=== PATIENT | male | born 1935 | race Caucasian/White ===

== ENCOUNTER 2018-06-29 13:18 | Observation (INO) | payer MEDICARE, MEDICAID ==
[~2018-06-29] VITALS: Ht 172.7 cm; Wt 105.2 kg
--- NOTE | ~2018-06-29 | CN ---
PATIENT NAME:CHERRY ROD MEDICAL RECORD: [id number] : 35 LOCATION:D. D.2133 ADMIT DATE: 06/29/18 ACCOUNT: [id number] CONSULTING PHYSICIAN: MARISSA MCKOY MD REFERRING PHYSICIAN: MARIMAR CHAPIN MD DATE OF CONSULTATION: 06/29/2018 DIAGNOSES: 1. Syncope. 2. Wide-complex tachycardia. 3. End-stage renal failure. 4. Hyperlipidemia. 5. History of atrial fibrillation, controlled on Cordarone. 6. Chest discomfort. 7. Sick sinus syndrome, status post pacemaker. HISTORY: This is a gentleman who was in dialysis, had syncope. He began having chest discomfort. He was noted to have episodes of wide-complex tachycardia. He is on Pacerone but only at 100 mg daily. He was given an extra dose of Pacerone. He is in sinus rhythm now. He has ST-T abnormalities in the lateral leads. Last cardiac catheterization was in 2013. There was no significant coronary disease at that time. He does have hyperlipidemia as well as end-stage renal failure, on dialysis. PHYSICAL EXAMINATION: GENERAL APPEARANCE: Well-nourished, well-developed, appears stated age. Level of distress, comfortable. PSYCHIATRIC: Mental status, alert, normal affect. Orientation, oriented to time, place and person. EYES: Lids and conjunctiva, noninjected. No discharge, no pallor. ENT: Lips, teeth, gums, normal dentition. Oropharynx, no cyanosis, no pallor. NECK: Carotid arteries, bilateral normal upstroke, no bruits, no thrills. JUGULAR VEINS: No jugular venous pressure or distention. CERVICAL LYMPH NODES: Nontender, nonenlarged. THYROID: Not enlarged. Nontender. No nodules. LUNGS: Respiratory effort, unlabored. CHEST: Normal curvature. No thoracic deformity. No chest wall tenderness. Percussion, resonant. Auscultation, clear. No wheezes, no rales, no rhonchi. CARDIOVASCULAR: Precordial exam, nondisplaced. No heaves or pericardial thrills. Rate and rhythm, regular. Heart sounds, normal S1, normal S2. No S3, no gallop, no rub. Systolic murmur, not heard. Diastolic murmur, not heard. EXTREMITIES: No cyanosis, no edema. Peripheral pulses, full and equal in all extremities, except as noted. No bruits appreciated. ABDOMEN: Soft, nondistended. Normal aorta. No bruit. Nontender. No masses. Liver, nontender, no hepatomegaly. Spleen, nontender, no splenomegaly. MUSCULOSKELETAL: No joint tenderness. No joint swelling. No erythema. NEUROLOGICAL: Normal gait, normal strength, normal tone. SKIN: Warm and dry. OVERALL IMPRESSION: Wide-complex tachycardia, abnormal ECG, and syncope. We will proceed with coronary angiography. Further care depends upon findings of the angiography. We will also interrogate his pacemaker to see exactly what rhythm that he did have earlier today. TRANSINT:[id number] Voice Confirmation ID: [id number] DOCUMENT ID: [id number] CONSULT REPORT [id number] CHERRY ROD, MARISSA MONTAGUE at 1950 CC: [id number] DICTATION DATE: 06/29/18 1333 SUMMER NANNY: 06/29/18 1353 DIS IN 07/02/18 [facility] [address] [place] [address]
--- NOTE | ~2018-06-29 | OP ---
PATIENT NAME: CHERRY ROD MEDICAL RECORD: [id number] :35 LOCATION:D.M2 D.2133 ADMISSION DATE:06/29/18 SURGEON: MARISSA MCKOY MD DATE OF OPERATION: 06/30/2018 DATE OF SERVICE: 06/30/2018 PROCEDURES: 1. PTCA stent of LAD. 2. Left heart catheterization. 3. Selective coronary angiography. 4. Four-vessel carotid and vertebral angiography. INDICATION: Syncope, coronary artery disease and angina. PROCEDURE IN DETAIL: After informed consent was obtained and after detailed description of risks, benefits as well as alternative therapies, the patient elected to proceed with angiogram and angioplasty. The right femoral area was prepped and draped in normal sterile fashion. Right femoral artery was cannulated via modified Seldinger technique with placement of 6-Chinese sheath. All catheters exchanged through this sheath. FINDINGS: There was sub-selection of each subclavian as well as the left carotid. RIGHT SIDE: The common internal and external carotids have mild plaquing, no greater than 20%, no flow-limiting stenosis. Vertebral artery has no significant disease. LEFT SYSTEM: The common internal and external carotids have mild plaquing, none greater than 20%, no flow-limiting stenosis. Vertebral artery has no significant angiographic disease. Left ventriculogram was performed in standard 30-degree HUBER view, reveals good cardiac wall motion throughout all segments. Overall ejection fraction estimated 60%. SELECTIVE CORONARY ANGIOGRAPHY: 1. Left main is with no significant angiographic disease. 2. Left anterior descending has 80% stenosis in mid vessel. 3. Left circumflex has moderate irregularities, but no flow-limiting stenosis. 4. Right coronary has moderate irregularities, but no flow-limiting stenosis. PTCA STENT OF THE LAD: The stent used was a 2.5 x 14 mm Integrity. Result was 0% residual stenosis. OVERALL IMPRESSION: Successful percutaneous transluminal coronary angioplasty stent of the left anterior descending going from 80% initial stenosis to 0% residual. TRANSINT:[id number] Voice Confirmation ID: [id number] DOCUMENT ID: [id number] OPERATIVE REPORT [id number] CHERRY ROD MARISSA MCKOY MD at 1950 CC: [id number] DICTATION DATE: 06/30/18 1251 SUPERVISOR [place]: 06/30/18 1313 DIS IN 07/02/18 [facility] [address] [place] [place] [id number]
--- NOTE | ~2018-06-29 | HEMODYNAMI ---
PATIENT:CHERRY ROD MEDICAL RECORD: [id number] : 35 [id number] AD[facility]ION DATE: 06/29/18 Generatedon:06/30/201812:53 Patient name: CHERRY ROD Patient #: [id number] SSN: : 1935 Date of study: 06/30/2018 Page: Of Hemodynamic Procedure Report Patient Data Patient Demographics Procedure consent was obtained First Name: CHERRY Gender: Male Last Name: VIOLA : 1935 [facility] Initial: D Age: 82 year(s) Patient #: [id number] Race: Unknown Additional ID: [id number] Contact details [address]: [address] [place] [address] State: [place] City: [place] Zip code: [address] Past Medical History Allergies: No known allergies Admission Admission Data Admission Date: 06/29/2018 Admission Time: 15:05 Admit Source: Other Room #: D.2133 Weight (lbs.): 231.49 Weight (kg.): 105 Lab Results Lab Result Date: 06/30/2018 Lab Result Time: 3:30 Biochemistry Name Units Result Min Max BUN mg/dl 56 --(----)-* 7 18 Creatinine mg/dl 10.3 --(----)-* 0.6 1.3 CBC Name Units Result Min Max Hematocrit % 31.1 *-(----)-- 42 54 Hemoglobin g/dl 10.3 *-(----)-- 13.5 17.5 Procedure Procedure Types Cath Procedure Diagnostic Procedure LHC LH w/Coronaries PCI Procedure Coronary Stent Coronary Stent Initial Peripheral Cath Diagnostic Procedure Cath Peripheral Four Vessel Arteriogram Procedure Description Procedure Date Procedure Date: 06/30/2018 Procedure Start Time: 12:34 Procedure End Time: 12:52 Procedure Staff Name Function Laureano Salvador MD Performing Physician Parag Sheppard RT Monitor Alvaro Benitez RT Scrub Chalino Watts RT Deputy Clerk Thiago Lorigan RN Nurse Procedure Data Cath Procedure Fluoroscopy Diagnostic fluoroscopy Total fluoroscopy Time: 3.1 time: 3.1 min min Diagnostic fluoroscopy Total fluoroscopy dose: 730 dose: 730 mGy mGy Contrast Material Contrast Material Type Amount (ml) Isovue 300 113 Entry Location Entry Primary Successful Side Size Upsize Upsize Entry Closure Succes sful Closure Location (Fr) 1 (Fr) 2 (Fr) Remarks Device Remarks Femoral Right 5 Fr 6 Fr Exoseal artery Short Estimated blood loss: 10 ml Diagnostic catheters Device Type Used For End Catheter Placement MULTIPACK Pigtail 5 Fr Procedure catheter MULTIPACK JL 4.0 5Fr Procedure catheter MULTIPACK 3DRC 5Fr Procedure catheter MULTIPACK 3DRC 5Fr Procedure catheter Procedure Complications No complications Procedure Medications Medication Administration Route Dosage 0.9% NaCl I.V. 100 ml/hr Oxygen etCO2 Nasal cannula 2 l/min Heparin Flush Bag added to field 2 bags (1000units/500ml NS) Lidocaine 2% added to field 20 Benadryl I.V. 50 mg Versed I.V. 1 mg Fentanyl I.V. 50 mcg Heparin Bolus I.V. 4000 units Hemodynamics Rest HGB: 10.3 (g/dl) Heart Rate: 60 (bpm) Snapshots Pre Cath Intra NCS Post Cath Vital Signs Time Heart Resp SPO2 etCO2 NIBP (mmHg) Rhythm Pain Sedation Rate (ipm) (%) (mmHg) Status Level (bpm) 12:17:44 60 22 98 0 169/90(143) NSR 0 (11) 10(A) , No pain 12:22:02 59 25 92 0 144/85(108) NSR 0 (11) 10(A) , No pain 12:26:16 60 12 95 28.5 122/94(113) NSR 0 (11) 10(A) , No pain 12:31:15 60 19 96 34.5 120/83(109) NSR 0 (11) 10(A) , No pain 12:35:27 60 14 98 0 127/80(108) NSR 0 (11) 9(A) , No pain 12:39:45 60 16 100 0 122/76(99) NSR 0 (11) 9(A) , No pain 12:44:03 60 15 100 0 116/62(96) NSR 0 (11) 9(A) , No pain 12:48:17 60 12 100 15 119/69(95) NSR 0 (11) 9(A) , No pain 12:52:31 60 14 98 15 113/63(88) NSR 0 (11) 9(A) , No pain Medications Time Medication Route Dose Verified Delivered Reason Notes Effectiveness by by 12:25:10 0.9% NaCl I.V. 100 Thiago Thiago Per physician ml/hr Wesley Olson RN RN 12:25:19 Oxygen etCO2 2 Thiago Thiago for arrhythmia Nasal l/min Wesley Olson cannula RN RN 12:25:30 Heparin Flush added 2 Thiago Thiago used for Bag to bags Wesley Olson procedure (1000units/500ml field RN RN NS) 12:25:42 Lidocaine 2% added 20ml Thiago Thiago for local to vial Wesley Olson anesthetic RN RN 12:25:50 Benadryl I.V. 50 mg Thiago Thiago Per physician Wesley Olson RN RN 12:31:01 Versed I.V. 1 mg Thiago Thiago for sedation Wesley Olson RN RN 12:31:09 Fentanyl I.V. 50 Thiago Thiago for sedation mcg Wesley Olson RN RN 12:40:04 Heparin Bolus I.V. 4000 Thiago Thiago for units Wesley Olson anticoagulation RN lump inspector Log Time Note 12:00:31 Informed consent obtained and on chart 12:00:34 Admit Source: Other 12:00:56 Diagnostic Cath status Elective 12:00:57 Alvaro Benitez RT(R) sent for patient. Start room use. 12:01:01 Plan of Care:Hemodynamics will remain stable., Cardiac rhythm will remain stable., Comfort level will be maintained., Respiratory function will remain adequate., Patient/ family verbilizes understanding of procedure., Procedure tolerated without complication., Recovers from procedure without complications.. 12:03:14 Patient Weight : 231.49 lbs 12:03:29 Patient allergic to No known allergies 12:05:32 Lab Result : BUN 56 mg/dl 12:05:32 Lab Result : Creatinine 10.3 mg/dl 12:05:32 Lab Result : Hemoglobin 10.3 g/dl 12:05:32 Lab Result : Hematocrit 31.1 % 12:06:59 Time tracking: Regular hours (M-F 7:00 - 5:00) 12:07:02 Patient received from Med II to CCL 2 Alert and oriented. Tansferred to table in Supine position. 12:07:09 Warm blankets applied, and trang hugger turned on for patient comfort. 12:07:09 Correct patient and procedure confirmed by team. 12:07:10 ECG and BP/O2 sat monitors applied to patient. 12:07:18 H&P Date Dictated: 06/29/2018 Within 30 days and on chart.. 12:07:19 Pre-procedure instructions explained to patient. 12:07:20 Pre-op teaching completed and patient verbalized understanding. 12:16:26 Family unavailable. 12:16:29 Vital chart was started 12:22:02 Is the patient allergic to Iodine/contrast media? No. 12:22:03 Is patient on blood thinner?Yes 12:22:05 ACC The patient was administered the following blood thiners within the last 24 hours: ACCPlavix 12:22:15 Patient diabetic? Yes. 12:22:16 If diabetic: On Metformin? No 12:22:19 Previous problem with sedation/anesthesia? No ? 12:22:19 Snore? Yes 12:22:21 Sleep apnea? No 12:22:21 Deviated septum? No 12:22:22 Opens mouth fully? Yes 12:22:23 Sticks out tongue? Yes 12:22:24 Airway obstruction? No ? 12:22:26 Dentures? Yes out 12:22:31 Patient pain scale 0/10 ?. 12:22:37 IV patent on arrival in Right upper arm with 0.9% NaCl at O. 12:22:40 Right groin area was prepped with chlora-prep and draped in sterile fashion 12:22:43 Alarms reviewed by R. N. 12:22:44 Sharps counted by scrub and verified by R.N. 12:22:46 Use device set Femoral Dx 12:22:47 ACIST Syringe (01798) opened to sterile field. 12:22:47 Bag Decanter (2002S) opened to sterile field. 12:22:48 Medline Cath Pack ([id number]) opened to sterile field. 12:22:48 ACIST Hand Control (96455) opened to sterile field. 12:22:49 ACIST Manifold (24616) opened to sterile field. 12:22:49 Tegaderm 4 x 4 (1626W) opened to sterile field. 12:22:50 SHEATH Prelude 5Fr 0.035 (YIP-3F-52-035) opened to sterile field. 12:22:52 DIAGNOSTIC Multipack 5Fr catheter set (EL1458) opened to sterile field. 12:22:52 DIAGNOSTIC WIRE .035 260cm J wire (204014) opened to sterile field. 12::58 Baseline sample Acquired. 12:25:10 0.9% NaCl 100 ml/hr I.V. was administered by Thiago Olson RN; Per physician; 12::19 Oxygen 2 l/min etCO2 Nasal cannula was administered by Thiago Olson RN; for arrhythmia; 12::30 Heparin Flush Bag (1000units/500ml NS) 2 bags added to field was administered by Thiago Olson RN; used for procedure; 12::42 Lidocaine 2% 20ml vial added to field was administered by Thiago Olson RN; for local anesthetic; 12::50 Benadryl 50 mg I.V. was administered by Thiago Olson RN; Per physician; 12:30:13 Rhythm: sinus rhythm 12::14 Full Disclosure recording started 12::18 Physician arrived :: --------ALL STOP TIME OUT------ :19 Final Timeout: patient, procedure, and site verified with staff and physician. All members of the team are in agreement. 12:30:21 Right groin site verified by team. 12::24 Physical assessment completed. ASA score P 2 - A patient with mild systemic disease as per Laureano Salvador MD. : Sedation plan: IV Moderate Sedation Medication:Versed, Fentanyl 12:: Versed 1 mg I.V. was administered by Thiago Olson RN; for sedation; ::09 Fentanyl 50 mcg I.V. was administered by Thiago Olson RN; for sedation; :28 Procedure started. 12:: Local anesthetic to right femoral artery with Lidocaine 2% by Laureano Salvador MD.INITIAL ACCESS ONLY 12:34:39 A 5 Fr sheath was inserted into the Right Femoral artery 12::44 Zero performed for pressure channel P1 12:34:48 Zero performed for pressure channel P1 12:35:35 A MULTIPACK Pigtail 5 Fr catheter was advanced over the wire and used for Procedure. 12:36:30 LV gram done using HUBER 12:36:33 Injector settings: Ml/sec: 10, Volume: 20, 12:36:34 LV hemodynamics recorded. 12:36:38 EF : 50 % 12:36:54 Catheter exchanged over wire. 12:36:58 A MULTIPACK JL 4.0 5Fr catheter was advanced over the wire and used for Procedure. 12:37:00 LCA angiography performed. 12:37:23 SHEATH Prelude 6Fr 0.035 (RVJ-3E-36-035) opened to sterile field. 12:37:33 CHOICE PT Extra Support 182cm wire ([id number]) opened to sterile field. 12:37:33 INFLATOR Merit BasixCompak (GQ9051) opened to sterile field. 12:38:08 GUIDE 6FR XBLAD 3.5 catheter ([id number]) opened to sterile field. 12:38:13 Catheter exchanged over wire. 12:38:18 A MULTIPACK 3DRC 5Fr catheter was advanced over the wire and used for Procedure. 12:38:23 RCA angiography performed. 12:38:48 Catheter removed. 12:39:03 Sheath upsized to a 6 Fr Short. 12:39:58 6 Fr xblad 3.5 guide catheter was inserted over the wire 12:40:04 Heparin Bolus 4000 units I.V. was administered by Thiago Olson RN; for anticoagulation; 12:40:31 choice pt es wire advanced. 12:40:32 Wire advanced across lesion. 12:41:55 Place stent Inflation Number: 1 A INTEGRITY RX 2.5 x 14 stent ([id number]) was prepped and advanced across the Mid LAD. The stent was deployed at 15 JULIANA for 0:10 (min:sec). 12:42:29 Stent catheter was removed intact over wire. 12:42:30 Wire removed. 12:42:32 Guide catheter removed. 12:42:54 A MULTIPACK 3DRC 5Fr catheter was advanced over the wire and used for Procedure. 12:43:26 Right subclavian angiography performed 12:43:27 Right carotid angiography performed. 12:43:36 Left carotid angiography performed. 12:44:17 Catheter removed. 12:44:27 Sheath removed intact; hemostasis achieved with Exoseal to the Right Femoral artery. 12:44:29 Procedure ended.(Physican Out) 12:44:30 EXOSEAL 6Fr (EX600) opened to sterile field. 12:49:13 Fluoroscopy time 03.10 minutes. 12:49:21 Flurop Dose total: 730 12:49:21 Fluoroscopy dose: 730 mGy 12:49:25 Contrast amount:Isovue 300 113ml. 12:49:26 Sharps counted by scrub and verified by R.N. 12:50:01 Insertion/operative site no bleeding no hematoma. 12:50:04 Post-op/insertion site Right Femoral artery dressed using a 4 x 4 and Tegaderm. 12:50:07 Post right femoral artery:stable, soft, clean and dry 12:50:09 Post Procedure Pulses reassessed and unchanged 12:50:11 Post-procedure physical assessment completed. ASA score P 2 - A patient with mild systemic disease as per Laureano Salvador MD. 12:50:13 Post procedure rhythm: unchanged. 12:50:16 Estimated blood loss: 10 ml 12:50:18 Post procedure instruction explained to patient.Patient verbalizes understanding. 12:50:18 Patient needs reinforcement of post procedure teaching. 12:50:32 Procedure type changed to Cath procedure, Diagnostic procedure, LHC, LHC w/Coronaries, PCI procedure, Coronary Stent, Coronary Stent Initial, Peripheral Cath Diagnostic Procedure, Cath Peripheral, Four Vessel Arteriogram 12:52:47 Procedure and supply charges have been captured, reviewed, submitted and are correct. 12:52:49 Procedure Complication : No complications 12:52:51 Vital chart was stopped 12:52:51 See physician's report for complete and final results. 12:52:53 Report given to PCU. 12:52:56 Patient transfered to PCU with Stretcher. 12:52:58 Procedure ended. 12:52:58 Full Disclosure recording stopped 12:53:01 End room use (Document Last) Intervention Summary Intervention Notes Time ActionType Lesion and Equipment Action# Pressure Duration Attributes Used 12:41:55 Place stent Mid LAD INTEGRITY RX 1 15 00:10 2.5 x 14 stent ([id number]) Device Usage Item Name Manufacture Quantity Catalog Number Hospital Part Current Minimal Lot# / Charge Number Stock Stock Serial# Code ACIST Syringe Acist 1 71627 959335 146239 [id number] 20 (11168) [employer] Bag Decanter Microtek 1 2001S 492680 29164 616907 5 (2001S) Medical Inc. Medline Cath Cardinal 1 [id number] 779820 76963 394974 5 Pack Health ([id number]) ACIST Hand Acist 1 58136 703275 105641 619437 5 Control (72889) Medical [employer] Inc ACIST Manifold Acist 1 34062 527887 138836 062454 5 (34008) Medical Systems Inc Tegaderm 4 x 4 3M 1 1626W 533870 236673 278628 5 (1626W) SHEATH Prelude Merit 1 OPI-8D-54-035 324032 111805 451465 5 5Fr 0.035 Medical (CKK-4U-71-035) DIAGNOSTIC Cardinal 1 MI2538 640670 05858 365159 30 Multipack 5Fr Health catheter set (QP8764) DIAGNOSTIC WIRE [facility] [place] 1 307057 904457 920694 958320 30 .035 260cm J wire (959030) MULTIPACK Cardinal 1 368544 5 Pigtail 5 Fr Health catheter MULTIPACK JL Cardinal 1 069187 5 4.0 5Fr Health catheter SHEATH Prelude Merit 1 ARS-0W-82-35 945286 8725754 532747 5 6Fr 0.035 Medical (WNQ-3I-71-035) CHOICE PT Extra [place] 1 [id number] 218915 986399 688155 5 Support 182cm Scientific wire ([id number]) INFLATOR Merit Merit 1 TX9587 053755 088509 363586 15 BasixComnek Medical (BC4332) GUIDE 6FR XBLAD Cardinal 1 [id number] 051978 119450 314642 10 3.5 catheter Health ([id number]) MULTIPACK 3DRC Cardinal 1 323614 5 5Fr catheter Health INTEGRITY RX Medtronic 1 [id number] 124134 255897 245756 5 [id number] 2.5 x 14 stent ([id number]) EXOSEAL 6Fr Cardinal 1 EX600 382990 351761 066660 10 (EX600) Health Signature Audit [place] Stage Time Signature Unsigned Intra-Procedure 06/30/2018 Parag Sheppard 12:53:18 PM RT(R) Signatures Monitor : Parag Sheppard RT Signature : Date : Time : [facility] [address] [place] [address]
--- NOTE | ~2018-06-29 | EC ---
PATIENT:CHERRY ROD DATE OF SERVICE: 06/29/18 SEX: M MEDICAL RECORD: [id number] DATE OF : 35 LOCATION:D.M2 D.213 AGE OF PATIENT: 82 ADMISSION DATE: 06/29/18 REFERRING PHYSICIAN: INTERPRETING PHYSICIAN: MARISSA SALVADOR MD ECHOCARDIOGRAM REPORT ECHO CHARGES 4 ECHO COMPLETE Date: 06/29/18 CLINICAL DIAGNOSIS: VTACH ECHOCARDIOGRAPHIC MEASUREMENTS (adult normal given) AC root (d.<3.7cm) 3.4 cm LV Septum d (<1.2 cm> 1.4 cm Valve Excursion 1.8 cm LV Septum (systole) 1.6 cm Left Atria (s.<4.0cm> 4.4 cm LVPW d(<1.2cm) 1.3 cm RV (d.<2.3cm) 3.1 cm LVPW (sytole) 1.4 cm LV diastole(<5.6CM) 4.8 cm MV E-F(>70mm/sec) cm LV systole 3.5 cm LVOT Diameter 1.9 cm MV exc.(>10mm) 1.7 cm Est.ejection fraction (50-75%) % DOPPLER: LVIT cm/sec A cm/sec E cm/sec LA cm/sec RVSP 26 mmHg LVOT 69 cm/sec AOP1/2T m/s Asc. Ao 103 cm/sec RVOT 93 cm/sec RA cm/sec PA 102 cm/sec AV Gradient Peak 4.27 mmHg AV Mean 1.95 mmHg AV Area 1.8 cm MV Gradient Peak 5.36 mmHg MV Mean 1.94 mmHg MV Area cm COMMENTS: Clinical Coder: Karena SOW Eligibility Examiner: 1 Dr. Salvador TAPE# PACS Pericardial Effusion N DATE OF SERVICE: 06/29/2018 PROCEDURE: Echocardiogram. FINDINGS: 1. Left ventricular chamber size is within normal limits. Left ventricular systolic function is normal. Overall ejection fraction estimated at 55%. 2. Left atrium is enlarged at 4.4 cm. Right atrium and right ventricular chamber sizes are as well mildly dilated. 3. Valvular structures have normal structure and motion. ECHOCARDIOGRAM REPORT [id number] CHERRY ROD 4. Doppler interrogation reveals mild aortic insufficiency, mild mitral regurgitation, mild tricuspid regurgitation, no other valvular insufficiency or stenosis. 5. No evidence of pericardial effusion or left ventricular thrombus. 6. The patient is in atrial fibrillation during the study. TRANSINT:[id number] Voice Confirmation ID: [id number] DOCUMENT ID: [id number] MARISSA SALVADOR MD at 1950 CC: [id number] DICTATION DATE: 06/29/18 1604 BROKER: 06/29/18 1609 DIS IN 07/02/18 [place] [id number] [place] [id number]
--- NOTE | ~2018-06-29 | DS ---
PATIENT:CHERRY ROD :35 MEDICAL RECORD: [id number] DISCHARGE SUMMARY ADMISSION DATE: 06/29/18 DISCHARGE DATE: 07/02/18 DISCHARGE DIAGNOSES: 1. Syncope. 2. Angina. 3. Coronary artery disease. 4. PTCA and stent of LAD this admission. 5. End-stage renal failure, on dialysis. 6. Hypertension. 7. Paroxysmal atrial fibrillation. HOSPITAL COURSE: Mr. Rod presents with syncope and chest pain, found to have significant disease of the LAD. He was also found to be in atrial fibrillation. He was previously on Cordarone. Cordarone was changed to sotalol. He had no further atrial fibrillation. He underwent successful PTCA and stent of the LAD. No further angina. Discharged home. To continue the Plavix. He is already on discontinuation of the Cordarone. To continue the sotalol. Follow up with [facility] in 1 month. TRANSINT:[id number] Voice Confirmation ID: [id number] DOCUMENT ID: [id number] MARISSA MCKOY MD at 1950 CC: [id number] DICTATION DATE: 06/30/18 1250 BUSINESS BANKING RELATIONSHIP MANAGER: 06/30/18 1258 DIS IN 07/02/18 [facility] [address] [place] [address]
[~2018-06-29 13:18] MED LIST: ANTIVERT12.5 MG; GABAPENTIN100 MG PO; GLUCOTROL 5 MG T5 MG PO; IPRAT-ALBUT 0.5-3 ML UPD; LEVAQUIN500 MG PO; MIRALAX17 GM; MIRALAX17 GM PO; NYSTATIN ORAL SU5 ML PO; PACERONE200 MG PO; PENTOXIFYLLINE400 MG PO; PLAVIX75 MG PO; PROTONIX40 MG PO; TRENTAL400 MG PO; TYLENOL650 MG RC; ZOCOR40 MG PO; ZOFRAN4 MG PO
[2018-06-29 14:31] VITALS: BP 160/91
[2018-06-29 14:40] LABS: CREATINE KINASE 197 UL (21-232); MAGNESIUM - SERUM 2.1 mg/dL (1.8-2.4); TROPONIN-I 0.025 ng/mL (0.000-0.060)
[2018-06-29 16:30] LABS: TROPONIN-I 0.022 ng/mL (0.000-0.060)
[2018-06-29] MEDS ORDERED: PENTOXIFYLLINE400 MG PO (16:54)
[2018-06-29] MEDS ORDERED: MIDODRINE HCL5 MG PO (16:55)
[2018-06-29] MEDS ORDERED: MULTIPLE VITAMI1 TA1 PO (16:57)
[2018-06-29] MEDS ORDERED: MECLIZINE HCL12.5 MG PO (16:57)
[2018-06-29] MEDS ORDERED: CALCIUM 500 +1 EAC3 PO (16:58)
[2018-06-29] MEDS ORDERED: FERROUS SULFAT325 MG PO (16:58)
[2018-06-29] MEDS ORDERED: BAYER CHEWABLE81 MG PO (16:58)
[2018-06-29 17:00] VITALS: BP 159/93
[2018-06-29] MEDS ORDERED: PHOSLO667 MG PO (17:00)
[2018-06-29 20:14] VITALS: BP 159/93
[2018-06-29 21:56] LABS: CKMB 3.4 U/L (0.0-3.6); TROPONIN-I 0.021 ng/mL (0.000-0.060)
[2018-06-29 21:57] LABS: CREATINE KINASE 267 UL (21-232)
[2018-06-30 00:19] VITALS: BP 157/83
[2018-06-30 04:00] VITALS: BP 138/75
[2018-06-30 04:52] LABS: BASOPHILS 0.3 % (0-2); EOSINOPHILS 1.6 % (0-7); HEMATOCRIT 31.1 % (42.0-54.0); HEMOGLOBIN 10.3 g/dL (13.5-17.5); IMMATURE GRANULOCYTES 0.1 % (0-5); LYMPHOCYTES 28.7 % (15-50); MCHC 33.1 g/dL (31.0-37.0); MCV 96.6 fL (80.0-100.0); MONOCYTES 8.2 % (2-11); NEUTROPHILS 61.1 % (40-80); RBC 3.22 10x6/uL (4.20-6.10); RDW 14.6 % (11.5-14.5)
[2018-06-30 05:03] LABS: PLATELET COUNT 172 10x3/uL (130-400)
[2018-06-30 05:31] LABS: ALBUMIN 2.9 g/dL (3.4-5.0); ALKALINE PHOSPHATASE 53 U/L (46-116); ALT (SGPT) 19 U/L (10-68); BILIRUBIN - TOTAL 0.33 mg/dL (0.2-1.3); CALC OSMOLALITY 291 mosm/kg (275-300); CALCIUM 8.2 mg/dL (8.5-10.1); CARBON DIOXIDE 27.1 mmol/L (21.0-32.0); CHLORIDE - SERUM 101 mmol/L (98-107); CKMB 2.5 U/L (0.0-3.6); CREATINE KINASE 218 UL (21-232); CREATININE - SERUM 10.3 mg/dL (0.6-1.3); GLUCOSE 143 mg/dL (74-106); MAGNESIUM - SERUM 2.2 mg/dL (1.8-2.4); POTASSIUM - SERUM 4.5 mmol/L (3.5-5.1); PROTEIN - SERUM 6.5 g/dL (6.4-8.2); SODIUM 137 mmol/L (136-145); TROPONIN-I < 0.017 ng/mL (0.000-0.060); UREA NITROGEN 56 mg/dL (7-18); eGFR NON AFRICAN AMERICAN 5 mL/min (90-120)
[2018-06-30 07:50] VITALS: BP 130/59
[2018-06-30 08:00] VITALS: BP 156/59
[2018-06-30 10:50] VITALS: BP 141/68
[2018-06-30 14:04] VITALS: Ht 172.7 cm; Wt 105.2 kg
[2018-06-30 15:11] VITALS: BP 126/55
[2018-07-01 04:00] VITALS: BP 142/70
[2018-07-01 07:46] VITALS: BP 152/67
[2018-07-01 11:26] VITALS: BP 138/72
[2018-07-01] MEDS ORDERED: BETAPACE 120 M120 MG PO (11:32)
[2018-07-01 15:13] VITALS: BP 157/44
[2018-07-01 16:52] LABS: BILIRUBIN - TOTAL 0.3 mg/dL (0.2-1.3); CALCIUM 7.5 mg/dL (8.5-10.1); CARBON DIOXIDE 23.2 mmol/L (21.0-32.0); CREATININE - SERUM 12.6 mg/dL (0.6-1.3); MAGNESIUM - SERUM 2.2 mg/dL (1.8-2.4); PROTEIN - SERUM 6.8 g/dL (6.4-8.2)
[2018-07-01 16:56] LABS: POTASSIUM - SERUM 5.2 mmol/L (3.5-5.1)
[2018-07-01 17:36] LABS: HEMATOCRIT 30.7 % (42.0-54.0); HEMOGLOBIN 10.6 g/dL (13.5-17.5); MCH 32.8 pg (26.0-34.0); RBC 3.23 10x6/uL (4.20-6.10); WBC 7.1 10x3/uL (4.8-10.8)
[2018-07-01 17:37] LABS: LYMPHOCYTES 17.7 % (15-50); MCHC 34.5 g/dL (31.0-37.0); MEAN PLATELET VOLUME 10.9 fL (7.4-10.4); NEUTROPHILS 73.9 % (40-80); PLATELET COUNT 150 10x3/uL (130-400); RDW 14.5 % (11.5-14.5)
[2018-07-01 20:41] VITALS: BP 124/54
[2018-07-02 04:56] VITALS: BP 158/67
[2018-07-02 08:02] LABS: BILIRUBIN - TOTAL 0.26 mg/dL (0.2-1.3); CALCIUM 7.8 mg/dL (8.5-10.1); CARBON DIOXIDE 25.6 mmol/L (21.0-32.0); CREATININE - SERUM 10.7 mg/dL (0.6-1.3); MAGNESIUM - SERUM 2.1 mg/dL (1.8-2.4); PROTEIN - SERUM 6.8 g/dL (6.4-8.2)
[2018-07-02 08:04] LABS: ANION GAP 13.8 mmol/L (8-16); POTASSIUM - SERUM 4.4 mmol/L (3.5-5.1)
[2018-07-02 08:24] LABS: HEMOGLOBIN 10.7 g/dL (13.5-17.5); LYMPHOCYTES 24.7 % (15-50); MCH 32.6 pg (26.0-34.0); MCHC 34.5 g/dL (31.0-37.0); MCV 94.5 fL (80.0-100.0); MEAN PLATELET VOLUME 10.7 fL (7.4-10.4); NEUTROPHILS 64.9 % (40-80); PLATELET COUNT 132 10x3/uL (130-400); RBC 3.28 10x6/uL (4.20-6.10); RDW 14.1 % (11.5-14.5); WBC 7.2 10x3/uL (4.8-10.8)
[2018-07-02 09:23] VITALS: BP 109/70
== END 2018-07-02 12:56 | disposition home or self-care (01) ==
LOC: D.ER 13:18 → D.M2 15:05 → OBSVTIME 15:05 → D.EDHOLD 15:05 → D.M2 15:27
PROVIDERS: Family Medicine
DX: I25.119 Atherosclerotic heart disease of native coronary artery with unspecified angina pectoris (principal); E11.22 Type 2 diabetes mellitus with diabetic chronic kidney disease; E11.65 Type 2 diabetes mellitus with hyperglycemia; I12.0 Hypertensive chronic kidney disease with stage 5 chronic kidney disease or end stage renal disease; N18.6 End stage renal disease; Z99.2 Dependence on renal dialysis; Z87.891 Personal history of nicotine dependence; E78.5 Hyperlipidemia, unspecified; Z95.0 Presence of cardiac pacemaker; I48.0 Paroxysmal atrial fibrillation; R94.31 Abnormal electrocardiogram [ECG] [EKG]; J44.9 Chronic obstructive pulmonary disease, unspecified; Z89.511 Acquired absence of right leg below knee; E11.51 Type 2 diabetes mellitus with diabetic peripheral angiopathy without gangrene; E21.3 Hyperparathyroidism, unspecified

== ENCOUNTER 2018-07-08 11:01 | Inpatient (IN) | payer MEDICARE, MEDICAID ==
[~2018-07-08] VITALS: Ht 172.7 cm; Wt 104.5 kg
[~2018-07-08 11:01] MED LIST changes: +BAYER CHEWABLE81 MG PO; +BETAPACE 120 M120 MG PO; +CALCIUM 500 +1 EAC3 PO; +FERROUS SULFAT325 MG PO; +MECLIZINE HCL12.5 MG PO; +MIDODRINE HCL5 MG PO; +MULTIPLE VITAMI1 TA1 PO; +PHOSLO667 MG PO
[2018-07-08 15:36] VITALS: BP 100/45; BMI 36.2
[2018-07-08 17:11] LABS: HEMOGLOBIN 9.6 g/dL (13.5-17.5); MCH 31.8 pg (26.0-34.0); MCHC 34.3 g/dL (31.0-37.0); MCV 92.7 fL (80.0-100.0); MEAN PLATELET VOLUME 11.1 fL (7.4-10.4); RBC 3.02 10x6/uL (4.20-6.10); RDW 14.2 % (11.5-14.5); WBC 8.8 10x3/uL (4.8-10.8)
[2018-07-08 17:12] LABS: PLATELET COUNT 192 10x3/uL (130-400)
[2018-07-08 17:26] LABS: APTT 30.2 SECONDS (22.8-39.4); INR 1.24 (0.85-1.17); PROTIME 15.2 SECONDS (11.6-15.0)
[2018-07-08 17:45] LABS: ALBUMIN 3.1 g/dL (3.4-5.0); ALKALINE PHOSPHATASE 50 U/L (46-116); ALT (SGPT) 33 U/L (10-68); BILIRUBIN - TOTAL 0.36 mg/dL (0.2-1.3); CALCIUM 7.7 mg/dL (8.5-10.1); CHLORIDE - SERUM 96 mmol/L (98-107); CKMB 33.1 U/L (0.0-3.6); MAGNESIUM - SERUM 2.7 mg/dL (1.8-2.4); PROTEIN - SERUM 6.7 g/dL (6.4-8.2); SODIUM 134 mmol/L (136-145); TROPONIN-I 0.037 ng/mL (0.000-0.060); UREA NITROGEN 147 mg/dL (7-18)
[2018-07-08 17:48] LABS: CALC OSMOLALITY 313 mosm/kg (275-300); CREATINE KINASE 4674 UL (21-232); CREATININE - SERUM 20.8 mg/dL (0.6-1.3); PHOSPHOROUS 9.3 mg/dL (2.5-4.9); eGFR NON AFRICAN AMERICAN 2 mL/min (90-120)
[2018-07-08 17:49] LABS: GLUCOSE 69 mg/dL (74-106); POTASSIUM - SERUM 6.5 mmol/L (3.5-5.1)
[2018-07-08 18:49] LABS: BASOPHILS 2 % (0-2); LYMPHOCYTES 39 % (15-50); NEUTROPHILS 58 % (40-80)
[2018-07-08 18:50] LABS: ELLIPTOCYTES OCC; PLATELET ESTIMATE NORMAL; TARGET CELLS 1+
[2018-07-08 23:40] LABS: CKMB 24.5 U/L (0.0-3.6); TROPONIN-I 0.035 ng/mL (0.000-0.060)
[2018-07-08 23:45] LABS: CREATINE KINASE 4852 UL (21-232)
[2018-07-09] VITALS: BP 114/72
[2018-07-09 06:24] LABS: BASOPHILS 0.5 % (0-2); EOSINOPHILS 2.1 % (0-7); HEMATOCRIT 29.1 % (42.0-54.0); HEMOGLOBIN 9.9 g/dL (13.5-17.5); IMMATURE GRANULOCYTES 0.1 % (0-5); MCH 31.7 pg (26.0-34.0); MCV 93.3 fL (80.0-100.0); MEAN PLATELET VOLUME 10.6 fL (7.4-10.4); MONOCYTES 15.5 % (2-11); NEUTROPHILS 64.8 % (40-80); PLATELET COUNT 186 10x3/uL (130-400); RBC 3.12 10x6/uL (4.20-6.10); RDW 14.2 % (11.5-14.5); WBC 7.6 10x3/uL (4.8-10.8)
[2018-07-09 06:31] VITALS: BP 142/59
[2018-07-09 06:57] LABS: CHLORIDE - SERUM 97 mmol/L (98-107); CKMB 20.3 U/L (0.0-3.6); GLUCOSE 73 mg/dL (74-106); SODIUM 139 mmol/L (136-145); TROPONIN-I 0.035 ng/mL (0.000-0.060)
[2018-07-09 07:00] LABS: CALC OSMOLALITY 298 mosm/kg (275-300); UREA NITROGEN 73 mg/dL (7-18)
[2018-07-09 07:01] LABS: CARBON DIOXIDE 23.7 mmol/L (21.0-32.0); CREATINE KINASE 4688 UL (21-232); CREATININE - SERUM 13.8 mg/dL (0.6-1.3); POTASSIUM - SERUM 4.2 mmol/L (3.5-5.1); eGFR NON AFRICAN AMERICAN 4 mL/min (90-120)
[2018-07-09 07:59] VITALS: BP 106/57
[2018-07-09 10:57] VITALS: Ht 172.7 cm; Wt 104.5 kg
[2018-07-09 11:03] VITALS: BP 101/51
[2018-07-09 15:12] VITALS: BP 105/58
[2018-07-09 22:45] VITALS: BP 126/72
[2018-07-10 06:43] VITALS: BP 158/43
[2018-07-10 07:57] VITALS: BP 120/58
[2018-07-10 16:29] LABS: BASOPHILS 0.5 % (0-2); EOSINOPHILS 1.2 % (0-7); HEMATOCRIT 29.4 % (42.0-54.0); IMMATURE GRANULOCYTES 0.4 % (0-5); LYMPHOCYTES 17.9 % (15-50); MCH 32.1 pg (26.0-34.0); MCV 94.2 fL (80.0-100.0); MEAN PLATELET VOLUME 10.8 fL (7.4-10.4); MONOCYTES 16.5 % (2-11); NEUTROPHILS 63.5 % (40-80); PLATELET COUNT 164 10x3/uL (130-400); RBC 3.12 10x6/uL (4.20-6.10); RDW 13.9 % (11.5-14.5)
[2018-07-10 16:32] LABS: ANION GAP 17.4 mmol/L (8-16); CALCIUM 8.1 mg/dL (8.5-10.1); CARBON DIOXIDE 27.8 mmol/L (21.0-32.0); CREATININE - SERUM 9.1 mg/dL (0.6-1.3); POTASSIUM - SERUM 4.2 mmol/L (3.5-5.1)
[2018-07-10 20:30] VITALS: BP 154/59
[2018-07-11 08:20] VITALS: BP 148/72
[2018-07-11 11:36] VITALS: BP 139/64
[2018-07-11 14:46] LABS: BASOPHILS 0.4 % (0-2); EOSINOPHILS 1.9 % (0-7); HEMATOCRIT 30.2 % (42.0-54.0); HEMOGLOBIN 10.1 g/dL (13.5-17.5); IMMATURE GRANULOCYTES 0.3 % (0-5); LYMPHOCYTES 19.2 % (15-50); MCH 32.1 pg (26.0-34.0); MCHC 33.4 g/dL (31.0-37.0); MCV 95.9 fL (80.0-100.0); MEAN PLATELET VOLUME 10.8 fL (7.4-10.4); MONOCYTES 13.5 % (2-11); NEUTROPHILS 64.7 % (40-80); PLATELET COUNT 174 10x3/uL (130-400); RBC 3.15 10x6/uL (4.20-6.10); WBC 9.4 10x3/uL (4.8-10.8)
[2018-07-11 15:00] LABS: ANION GAP 13.8 mmol/L (8-16); CALCIUM 8.5 mg/dL (8.5-10.1); CARBON DIOXIDE 31.6 mmol/L (21.0-32.0); POTASSIUM - SERUM 4.4 mmol/L (3.5-5.1)
[2018-07-11 15:04] LABS: CREATININE - SERUM 11.6 mg/dL (0.6-1.3)
[2018-07-11 16:19] VITALS: BP 142/76
[2018-07-11 23:17] VITALS: BP 164/71
[2018-07-12 01:30] VITALS: BP 184/77
[2018-07-12 05:59] LABS: BASOPHILS 0.3 % (0-2); EOSINOPHILS 1.8 % (0-7); HEMATOCRIT 30.5 % (42.0-54.0); HEMOGLOBIN 10.1 g/dL (13.5-17.5); IMMATURE GRANULOCYTES 0.3 % (0-5); LYMPHOCYTES 21.8 % (15-50); MCH 31.7 pg (26.0-34.0); MCHC 33.1 g/dL (31.0-37.0); MCV 95.6 fL (80.0-100.0); MEAN PLATELET VOLUME 10.7 fL (7.4-10.4); MONOCYTES 14.5 % (2-11); NEUTROPHILS 61.3 % (40-80); PLATELET COUNT 187 10x3/uL (130-400); RBC 3.19 10x6/uL (4.20-6.10); RDW 13.9 % (11.5-14.5)
[2018-07-12 06:04] LABS: ANION GAP 12.9 mmol/L (8-16); CALCIUM 8.5 mg/dL (8.5-10.1); CARBON DIOXIDE 29.5 mmol/L (21.0-32.0); CREATININE - SERUM 12.7 mg/dL (0.6-1.3); POTASSIUM - SERUM 4.4 mmol/L (3.5-5.1)
[2018-07-12 06:25] VITALS: BP 169/73
[2018-07-12 08:55] VITALS: BP 136/47
[2018-07-12 12:48] VITALS: BP 115/47
[2018-07-12 15:53] VITALS: BP 130/50
[2018-07-12 21:20] VITALS: BP 176/74
[2018-07-13 05:51] VITALS: BP 173/74
[2018-07-13 08:07] VITALS: BP 135/88
[2018-07-13 11:02] VITALS: BP 154/54
[2018-07-13 15:56] VITALS: BP 178/71
[2018-07-13 16:03] LABS: BASOPHILS 0.3 % (0-2); EOSINOPHILS 2.5 % (0-7); HEMATOCRIT 29.8 % (42.0-54.0); HEMOGLOBIN 9.9 g/dL (13.5-17.5); IMMATURE GRANULOCYTES 0.3 % (0-5); LYMPHOCYTES 21.3 % (15-50); MCH 31.5 pg (26.0-34.0); MCHC 33.2 g/dL (31.0-37.0); MCV 94.9 fL (80.0-100.0); MEAN PLATELET VOLUME 10.4 fL (7.4-10.4); MONOCYTES 9.1 % (2-11); NEUTROPHILS 66.5 % (40-80); PLATELET COUNT 199 10x3/uL (130-400); RBC 3.14 10x6/uL (4.20-6.10); RDW 13.7 % (11.5-14.5); WBC 10.1 10x3/uL (4.8-10.8)
[2018-07-13 17:10] LABS: ANION GAP 15.3 mmol/L (8-16); CALCIUM 9.5 mg/dL (8.5-10.1); CARBON DIOXIDE 28.5 mmol/L (21.0-32.0); CREATININE - SERUM 15.2 mg/dL (0.6-1.3); POTASSIUM - SERUM 4.8 mmol/L (3.5-5.1)
[2018-07-13 20:00] VITALS: BP 203/79
[2018-07-14 04:00] VITALS: BP 206/85
[2018-07-14 04:54] LABS: BASOPHILS 0.3 % (0-2); EOSINOPHILS 2.4 % (0-7); HEMATOCRIT 28.6 % (42.0-54.0); HEMOGLOBIN 9.6 g/dL (13.5-17.5); IMMATURE GRANULOCYTES 0.2 % (0-5); LYMPHOCYTES 19.9 % (15-50); MCH 32.1 pg (26.0-34.0); MCHC 33.6 g/dL (31.0-37.0); MCV 95.7 fL (80.0-100.0); MEAN PLATELET VOLUME 10.2 fL (7.4-10.4); NEUTROPHILS 66.2 % (40-80); PLATELET COUNT 164 10x3/uL (130-400); RBC 2.99 10x6/uL (4.20-6.10); RDW 13.7 % (11.5-14.5); WBC 9.5 10x3/uL (4.8-10.8)
[2018-07-14 05:23] LABS: ALBUMIN 2.8 g/dL (3.4-5.0); BILIRUBIN - TOTAL 0.25 mg/dL (0.2-1.3); CALCIUM 8.9 mg/dL (8.5-10.1); CARBON DIOXIDE 30.3 mmol/L (21.0-32.0); MAGNESIUM - SERUM 2.1 mg/dL (1.8-2.4); POTASSIUM - SERUM 4.3 mmol/L (3.5-5.1); PROTEIN - SERUM 6.8 g/dL (6.4-8.2)
[2018-07-14 05:37] LABS: CREATININE - SERUM 10.2 mg/dL (0.6-1.3)
[2018-07-14 07:57] VITALS: BP 130/50
[2018-07-14 11:18] VITALS: BP 140/46
== END 2018-07-14 17:03 | DRG 640 ==
LOC: D.M2 11:01
PROVIDERS: Family Medicine; Internal Medicine Nephrology
PROC: 5A1D70Z Performance of Urinary Filtration, Intermittent, Less than 6 Hours Per Day (ICD-10-PCS; principal; 2018-07-08)
DX: E87.70 Fluid overload, unspecified (principal); N18.6 End stage renal disease; I12.0 Hypertensive chronic kidney disease with stage 5 chronic kidney disease or end stage renal disease; E11.22 Type 2 diabetes mellitus with diabetic chronic kidney disease; Z99.2 Dependence on renal dialysis; E78.5 Hyperlipidemia, unspecified; I25.10 Atherosclerotic heart disease of native coronary artery without angina pectoris; I48.2 Chronic atrial fibrillation; E03.9 Hypothyroidism, unspecified; J44.9 Chronic obstructive pulmonary disease, unspecified; E11.51 Type 2 diabetes mellitus with diabetic peripheral angiopathy without gangrene; D63.1 Anemia in chronic kidney disease; G31.9 Degenerative disease of nervous system, unspecified; Z95.0 Presence of cardiac pacemaker; Z87.891 Personal history of nicotine dependence